=== PATIENT | male | born 1990 | race Caucasian/White ===

== ENCOUNTER 2018-03-15 12:55 | Emergency (ER) | payer OTHER ==
[~2018-03-15] VITALS: Ht 185.4 cm; Wt 106.6 kg
[2018-03-15 13:03] VITALS: BP 151/89
[2018-03-15] MEDS ORDERED: KETOROLAC TROMETH 60MG/2ML VIAL IM ONE (14:15)
[2018-03-15] MEDS ORDERED: BACITRACIN TOP OINT 1 UD PKG TOP ONE (14:15)
[2018-03-15] MEDS ORDERED: TETANUS-DIPTH-ACEL PERTUSSIS 0.5ML SYRG IM ONE (14:15)
[2018-03-15] MEDS ORDERED: BENZOCAINE (DENTAL) 20 % SPRAY 60ML MT ONE (14:22)
[2018-03-15] MEDS ORDERED: LIDOCAINE HCL 2% TOP JELLY 5ML TOP ONE (14:30)
== END 2018-03-15 14:28 | disposition home or self-care (01) ==
LOC: ER 12:59
DX: T23.202A Burn of second degree of left hand, unspecified site, initial encounter (principal); T20.212A Burn of second degree of left ear [any part, except ear drum], initial encounter; Z88.2 Allergy status to sulfonamides; F17.210 Nicotine dependence, cigarettes, uncomplicated; W40.8XXA Explosion of other specified explosive materials, initial encounter; Y93.89 Activity, other specified; Y92.89 Other specified places as the place of occurrence of the external cause; Y99.8 Other external cause status
CPT/HCPCS: 90715; 96372; 99283; J1885